=== PATIENT | female | born 1980 | race American Indian/Alaskan Native ===

== ENCOUNTER 2017-10-04 09:52 | Emergency (ER) | payer BC ==
[2017-10-04 10:04] VITALS: BP 124/84
[2017-10-04] MEDS ORDERED: DECADRON IM ONE (11:31)
--- NOTE | 2017-10-04 11:37 | Emergency Department Report ---
Minor Respiratory - HPI Chief Complaint: Upper Respiratory Infection Stated Complaint: CONGESTION, HERNANDEZ Time Seen by Provider: 10/04/17 11:23 Duration: 2 Days Pain Location: Nose (congestion) Severity: moderate Minor Respiratory: Yes Rhinorrhea, Yes Able to Tolerate Fluids, Yes Ear Pain, No Sore Throat, No Cough, No Sick Contacts, No Hemoptysis, No Chest Pain, No Shortness of Breath, No Fever Other History: This is a 37 y.o. female that presents with difficulty breathing and congestion for 2 days. Patient reports having sinus issues every since she moved to [place] 1 year ago. She went to [place] a few months ago and told to take zyrtec and sudafed which she is taking without improvement of symptoms. She didn't take zyrtec yesterday because she think it is causing anxiety. Yesterday she sleep at neighbors house because she was having difficulty breathing and very anxious. Today both ears feel full and heavy. She is feeling sinus pressure over forehead and nose. Denies fever, chest pain, nausea/vomiting , body aches, and headache. ED Review of Systems ROS: Stated complaint: CONGESTION, HERNANDEZ Other details as noted in HPI Constitutional: denies: chills, fever ENT: ear pain (bilateral ear fullness, sensation of water), congestion. denies : throat pain, dental pain, hearing loss, epistaxis Respiratory: denies: cough, shortness of breath, wheezing Cardiovascular: denies: chest pain, palpitations, edema, syncope Gastrointestinal: denies: abdominal pain, nausea, vomiting, diarrhea Neurological: headache. denies: weakness, numbness, paresthesias Psychiatric: anxiety. denies: depression ED Past Medical Hx - Past Medical History Previous Medical History?: Yes Hx Psychiatric Treatment: Yes (anxiety) Additional medical history: Sinusitis - Surgical History Past Surgical History?: Yes Additional Surgical History: Pituitary tumor - Social History Smoking Status: Current Some Day Smoker Substance Use Type: Alcohol, Marijuana - Medications Home Medications: Home Medications Medication Instructions Recorded Confirmed Last Taken Type Doxycycline Hyclate [Vibramycin] 100 mg PO BID 7 Days #14 capsule 10/04/17 Unknown Rx Fluticasone [Flonase] 1 spray NS QDAY #1 bottle 10/04/17 Unknown Rx guaiFENesin [Mucinex] 600 mg PO BID 7 Days #14 tab.er.12h 10/04/17 Unknown Rx Minor Respiratory Exam - Exam General: Vital signs noted. No distress. Alert and acting appropriately. HEENT: Yes Pharyngeal Erythema, Yes Moist Mucous Membranes, Yes Rhinorrhea ( turbinated congested with mucoid discharge), Yes Frontal Tenderness, Yes Maxillary Tenderness, No Pharyngeal Exudates, No Conjuctival Injection Ear: Neither TM Bulge, Neither TM Erythema, Neither EAC Pain, Neither EAC Discharge Neck: Yes Supple, No Adenopathy Lungs: Yes Good Air Exchange, No Wheezes, No Ronchi, No Stridor, No Cough, No Labored Respirations, No Retractions, No Use of Accessory Muscles, No Other Abnormal Lung Sounds Heart: Yes Regular, No Murmur Abdomen: Yes Normal Bowel Sounds, No Tenderness, No Peritoneal Signs Skin: No Rash, No Edema Neurologic: Alert and oriented, no deficits. Musculoskeletal: Unremarkable. ED Course Vital Signs 10/04/17 10:00 Temperature 98.1 F Pulse Rate 95 H Respiratory 20 Rate Blood Pressure 124/84 O2 Sat by Pulse 100 Oximetry ED Medical Decision Making - Medical Decision Making This is a 37 y.o. male presents with congestion and difficulty breathing for 2 days. Patient is stable and was examined by me. Vitals stable. Given dexamethason 8 mg IM once in ER and doxycycline 100 mg po once. Patient does not seem toxic or ill in appearance. No acute signs of distress noted. Start doxycycline, mucinex, and flonase. No further questions noted. Discharged home. Follow up with PCP in 24-48 hours. Critical care attestation.: If time is entered above; I have spent that time in minutes in the direct care of this critically ill patient, excluding procedure time. ED Disposition Clinical Impression: Sinusitis, acute Qualifiers: Sinusitis location: pansinusitis Recurrence: not specified as recurrent Qualified Code(s): J01.40 - Acute pansinusitis, unspecified Disposition: TO HOME OR SELFCARE Is pt being admited?: No Does the pt Need Aspirin: No Condition: Stable Instructions: Sinusitis (ED) Additional Instructions: Notify your physician if symptoms do not improve as expected. Pain should begin to improve within 2 to 3 days. Nasal obstruction and drainage may take a week or more to improve. Avoid cigarette smoke, environmental pollutants and allergens, alcohol, air travel, and diving in deep water. Steam inhalation and warm facial packs may be useful. Increase fluid intake and adequate sleep. Follow-up with your primary care provider in 2-3 days. Prescriptions: Doxycycline Hyclate [Vibramycin] 100 mg PO BID 7 Days #14 capsule Fluticasone [Flonase] 1 spray NS QDAY #1 bottle guaiFENesin [Mucinex] 600 mg PO BID 7 Days #14 tab.er.12h Referrals: [facility] [Outside] - 3-5 Days [facility] [Outside] - 3-5 Days [facility] [Outside] - 3-5 Days Time of Disposition: 11:48 Print Language: SLOVAK
[2017-10-04] MEDS ORDERED: VIBRAMYCIN PO ONE (11:43)
== END 2017-10-04 11:58 | disposition home or self-care (01) ==
LOC: ED 09:52
DX: J01.80 Other acute sinusitis (principal); F41.9 Anxiety disorder, unspecified; F17.200 Nicotine dependence, unspecified, uncomplicated; F12.10 Cannabis abuse, uncomplicated
CPT/HCPCS: 96372; 99282; J1100

== ENCOUNTER 2020-12-19 22:25 | Emergency (ER) | payer BC ==
--- NOTE | 2020-12-20 03:07 | Emergency Department Report ---
ED General Adult HPI - General Chief complaint: Upper Respiratory Infection Stated complaint: FEVER Source: patient Mode of arrival: Ambulatory Limitations: No Limitations - History of Present Illness Initial comments: Patient is a 40-year-old -[place] female with no past medical history presents to the ED with complaint of acute onset persistent nasal and sinus congestion, persistent dry cough, body aches and pains and subjective fever and chills for the last 1 week, worse in the last 2 days. Patient states that she was exposed to individuals with similar symptoms and developed her symptoms afterwards. Patient states that she has been taking [id number] medications for pain and decongestants with no relief. Patient denies dizziness, syncope, nausea and vomiting, diarrhea, abdominal pain, loss of taste or smell, headache, dysuria, urinary frequency and urgency or palpitations. MD Complaint: Nasal and sinus congestion; dry cough -: Sudden, days(s) (2) Location: mouth Radiation: non-radiation Severity scale (0 -10): 6 Quality: aching Consistency: constant Improves with: none Worsens with: none Associated Symptoms: denies other symptoms, fever/chills, headaches, loss of appetite, malaise. denies: confusion, chest pain, cough, diaphoresis, nausea/vomiting, rash, seizure, shortness of breath, syncope, weakness Treatments Prior to Arrival: none - Related Data Previous Rx's Medication Instructions Recorded Last Taken Type Doxycycline Hyclate [Vibramycin] 100 mg PO BID 7 Days #14 capsule 10/04/17 Unknown Rx Fluticasone [Flonase] 1 spray NS QDAY #1 bottle 10/04/17 Unknown Rx guaiFENesin [Mucinex] 600 mg PO BID 7 Days #14 tab.er.12h 10/04/17 Unknown Rx Azithromycin [Zithromax Z-JORGE] 250 mg PO DAILY #6 tablet 12/20/20 Unknown Rx Ibuprofen [Motrin] 800 mg PO Q8HR PRN #20 tablet 12/20/20 Unknown Rx predniSONE [Deltasone] 40 mg PO QDAY #10 tab 12/20/20 Unknown Rx Allergies Allergy/AdvReac Type Severity Reaction Status Date / Time No Known Allergies Allergy Unverified 10/04/17 10:00 ED Review of Systems ROS: Stated complaint: FEVER Other details as noted in HPI Constitutional: chills, fever, malaise Eyes: denies: eye pain, eye discharge, vision change ENT: throat pain, congestion Respiratory: cough. denies: shortness of breath, SOB with exertion, SOB at rest Cardiovascular: denies: chest pain, dyspnea on exertion, orthopnea, edema, syncope Endocrine: no symptoms reported. denies: see HPI, excessive sweating, flushing, increased hunger, unexplained weight gain Gastrointestinal: denies: abdominal pain, nausea, vomiting, diarrhea Genitourinary: denies: urgency, dysuria, discharge Musculoskeletal: arthralgia, myalgia. denies: back pain, joint swelling Skin: denies: rash, lesions Neurological: denies: headache, weakness, paresthesias Psychiatric: denies: anxiety, depression Hematological/Lymphatic: denies: easy bleeding, easy bruising ED Past Medical Hx - Past Medical History Hx Psychiatric Treatment: Yes (anxiety) Additional medical history: Sinusitis - Surgical History Additional Surgical History: Pituitary tumor - Social History Smoking Status: Current Some Day Smoker Substance Use Type: Alcohol, Marijuana - Medications Home Medications: Home Medications Medication Instructions Recorded Confirmed Last Taken Type Doxycycline Hyclate [Vibramycin] 100 mg PO BID 7 Days #14 capsule 10/04/17 Unknown Rx Fluticasone [Flonase] 1 spray NS QDAY #1 bottle 10/04/17 Unknown Rx guaiFENesin [Mucinex] 600 mg PO BID 7 Days #14 tab.er.12h 10/04/17 Unknown Rx Azithromycin [Zithromax Z-JORGE] 250 mg PO DAILY #6 tablet 12/20/20 Unknown Rx Ibuprofen [Motrin] 800 mg PO Q8HR PRN #20 tablet 12/20/20 Unknown Rx predniSONE [Deltasone] 40 mg PO QDAY #10 tab 12/20/20 Unknown Rx ED Physical Exam - General Limitations: No Limitations General appearance: alert, in no apparent distress - Head Head exam: Present: atraumatic, normocephalic, normal inspection - Eye Eye exam: Present: normal appearance, PERRL, EOMI Pupils: Present: normal accommodation - ENT ENT exam: Present: mucous membranes moist, normal external ear exam, other (Mild erythematous oropharynx; grossly congested nasal passages) - Neck Neck exam: Present: normal inspection, full ROM - Respiratory Respiratory exam: Present: normal lung sounds bilaterally. Absent: respiratory distress, wheezes, rhonchi, chest wall tenderness, accessory muscle use, decreased breath sounds - Cardiovascular Cardiovascular Exam: Present: normal rhythm, tachycardia, normal heart sounds. Absent: systolic murmur, diastolic murmur, rubs, gallop - GI/Abdominal GI/Abdominal exam: Present: soft, normal bowel sounds. Absent: tenderness, guarding, rebound, hyperactive bowel sounds, organomegaly - Extremities Exam Extremities exam: Present: normal inspection, full ROM, normal capillary refill - Back Exam Back exam: Present: normal inspection, full ROM. Absent: tenderness, CVA tenderness (R), CVA tenderness (L), muscle spasm, paraspinal tenderness - Neurological Exam Neurological exam: Present: alert, oriented X3, CN II-XII intact, normal gait, reflexes normal - Psychiatric Psychiatric exam: Present: normal affect, normal mood - Skin Skin exam: Present: warm, dry, intact, normal color. Absent: rash ED Course Vital Signs 12/20/20 02:24 Temperature 99.9 F H Pulse Rate 107 H Respiratory 18 Rate Blood Pressure 120/78 O2 Sat by Pulse 99 Oximetry ED Medical Decision Making - Medical Decision Making This is a 40-year-old -[place] female with no past medical history presents to the ED with complaint of acute onset persistent nasal and sinus congestion, persistent dry cough, body aches and pains and subjective fever and chills for the last 1 week, worse in the last 2 days. Patient states that she was exposed to individuals with similar symptoms and developed her symptoms afterwards. Patient states that she has been taking [id number] medicat ions for pain and decongestants with no relief. In the ED, patient is alert and oriented x3 and is not in any distress, tachycardic, febrile and anxious. Based on the history and physical exam findings, the patient was discharged home on medications and advised to follow-up with her primary care physician in 5 to 7 days for reevaluation. Patient is advised return to the ED immediately if symptoms get worse. - Differential Diagnosis URI; Pharyngitis; Strep pharyngitis; Bronchitis Critical care attestation.: If time is entered above; I have spent that time in minutes in the direct care of this critically ill patient, excluding procedure time. ED Disposition Clinical Impression: Acute upper respiratory infection, Acute bacterial pharyngitis Disposition: TO HOME OR SELFCARE Is pt being admited?: No Does the pt Need Aspirin: No Condition: Stable Instructions: Pharyngitis, [id number], Upper Respiratory Infection, Adult, [id number] Additional Instructions: Take medication with food, drink plenty of fluids and follow-up with your primary care physician in 5 to 7 days for reevaluation. Return to the ED immediately if symptoms get worse. Prescriptions: predniSONE [Deltasone] 40 mg PO QDAY #10 tab Ibuprofen [Motrin] 800 mg PO Q8HR PRN #20 tablet PRN Reason: Pain , Severe (7-10) Azithromycin [Zithromax Z-JORGE] 250 mg PO DAILY #6 tablet Referrals: [facility] [Provider Group] - 3-5 Days Forms: Work/School Release Form(ED) Time of Disposition: 03:06 Print Language: KHMER
== END 2020-12-20 03:20 | disposition home or self-care (01) ==
LOC: ED 22:25
CPT/HCPCS: 99282